=== PATIENT | male | born 1975 | race Asian ===

== ENCOUNTER 2017-12-29 15:52 | Inpatient (IN) | payer SELFPAY ==
[~2017-12-29] VITALS: Ht 185.4 cm; Wt 97.5 kg
[2017-12-29 16:00] VITALS: BP_SYST 136
[2017-12-29] MEDS ORDERED: IPRATROPIUM/ALBUTEROL SULFATE 3 ML AMPUL.NEB INH ONE ×2 (16:15→18:00)
[2017-12-29] MEDS ORDERED: DILTIAZEM HCL 25 MG/5 ML VIAL IVP ONE (16:15)
[2017-12-29 16:32] LABS: HEMATOCRIT 48.3 % (36-54); HEMOGLOBIN 15.5 g/dL (14.0-18.0); MEAN CORPUSCULAR HEMOGLOBIN 28 pg (27-31); MEAN CORPUSCULAR HGB CONC 32 % (32-36); MEAN CORPUSCULAR VOLUME 87 fL (79.0-98.0); PLATELET COUNT (AUTO) 209 K/uL (130-430); RED BLOOD CELL COUNT(AUTO) 5.57 MIL/uL (4.2-6.2); RED CELL DISTRIBUTION WIDTH 11.6 % (9.0-15.0); WHITE BLOOD COUNT (AUTO) 10.3 K/uL (4.8-10.8)
[2017-12-29 16:39] LABS: CREATININE 0.83 mg/dL (0.55-1.30); POTASSIUM 3.8 mmol/L (3.5-5.1)
[2017-12-29 16:45] LABS: ALBUMIN 3.8 g/dL (3.4-4.8); TOTAL BILIRUBIN 0.3 mg/dL (0.0-1.0)
[2017-12-29 17:06] LABS: BAND % (MANUAL) 4 % (0-6); BASOPHILS % (MANUAL) 0 % (0-2); EOSINOPHILS % (MANUAL) 18 % (0-7); LYMPHOCYTES % (MANUAL) 12 % (20-46); MONOCYTES % (MANUAL) 11 % (0-11)
[2017-12-29] MEDS ORDERED: NACL 0.9% 1,000 ML IV ONE (17:30)
[2017-12-29] MEDS ORDERED: methylPREDNISolone SOD SUCC/PF 62.5 MG/ML VIAL IVP ONE (18:00)
[2017-12-29] MEDS ORDERED: LevALBUTEROL HCL 1.25 MG/0.5 ML *CONC.* VIAL.NEB (XOPENEX CONC.) INH PRN (19:15)
[2017-12-29] MEDS ORDERED: ACETAMINOPHEN 325 MG TABLET PO PRN (19:30)
[2017-12-29] MEDS ORDERED: TEMAZEPAM 15 MG CAPSULE PO PRN (19:30)
[2017-12-29] MEDS: cefTRIAXone 1 GM in D5W 50 ML IV SCH (19:30)
[2017-12-29] MEDS ORDERED: MONTELUKAST 10 MG TABLET PO ONE (19:30)
[2017-12-29 19:40] LABS: BILIRUBIN,URINE NEGATIVE (NEGATIVE); BLOOD, URINE 1+ (NEGATIVE); CLARITY/URINE CLEAR (CLEAR); COLOR,URINE YELLOW (YELLOW); GLUCOSE,URINE NEGATIVE (NEGATIVE); KETONES,URINE TRACE (NEGATIVE); LEUKOCYTE ESTERASE ,URINE NEGATIVE (NEGATIVE); NITRITE, URINE NEGATIVE (NEGATIVE); PROTEIN URINE NEGATIVE (NEGATIVE); UROBILINOGEN,URINE 0.2 (0.2-1.0)
[2017-12-29 20:15] LABS: BACTERIA,URINE FEW /HPF (None Seen); WBC,URINE 0-3 /HPF (0-3)
[2017-12-29] MEDS ORDERED: cefTRIAXone 1 GM IVPB PREMIX 50 ML IV ONE (20:29)
[2017-12-29 20:52] VITALS: BP_SYST 136
[2017-12-29 21:00] VITALS: BP_SYST 138
[2017-12-29] MEDS ORDERED: PREDNISONE 20 MG TABLET PO SCH (21:00)
[2017-12-29] MEDS: PANTOPRAZOLE SODIUM 40 MG TAB PO SCH (21:26)
[2017-12-29] MEDS: DIPHENHYDRAMINE HCL 25 MG CAPSULE PO SCH (21:26)
[2017-12-29] MEDS: AZITHROMYCIN 250 MG TABLET PO SCH (21:27)
[2017-12-29] MEDS ORDERED: MAGNESIUM SULFATE 50 ML IV SCH (21:45)
[2017-12-29] MEDS: methylPREDNISolone SOD SUCC/PF 62.5 MG/ML VIAL IVP SCH (22:10)
[2017-12-30] MEDS: LevALBUTEROL HCL 1.25 MG/0.5 ML *CONC.* VIAL.NEB (XOPENEX CONC.) INH SCH ×4 (00:51→21:37)
[2017-12-30 01:08] VITALS: BP_SYST 131
[2017-12-30] MEDS: methylPREDNISolone SOD SUCC/PF 62.5 MG/ML VIAL IVP SCH ×3 (06:13→21:11)
[2017-12-30 07:59] VITALS: BP_SYST 118
[2017-12-30] MEDS: PANTOPRAZOLE SODIUM 40 MG TAB PO SCH ×2 (08:56→21:11)
[2017-12-30] MEDS: LORATADINE 10 MG TABLET PO SCH (08:56)
[2017-12-30] MEDS: DIPHENHYDRAMINE HCL 25 MG CAPSULE PO SCH ×2 (08:56→14:20)
[2017-12-30 10:39] LABS: BARBITURATE, URINE NEGATIVE (NEG <=200); METHAMPHETAMINES SCREEN,URINE NEGATIVE (NEG <=500); URINE AMPHETAMINE NEGATIVE (NEG <=500)
[2017-12-30 10:40] LABS: BENZODIAZEPINE, URINE NEGATIVE (NEG <=150); CANNABINOID, URINE NEGATIVE (NEG <=50); COCAINE, URINE NEGATIVE (NEG <=150); OPIATE, URINE POSITIVE (NEG <=100); PHENCYCLIDINE SCREEN,URINE NEGATIVE (NEG <=25); UR TRICYCLIC ANTIDEPRESSANTS NEGATIVE (NEG <=300); URINE METHADONE NEGATIVE (NEG <=200); URINE OXYCODONE SCREEN NEGATIVE (NEG <=100); URINE PROPOXYPHENE SCREEN NEGATIVE (NEG <=300)
[2017-12-30 13:17] VITALS: BP_SYST 123
[2017-12-30 16:26] VITALS: BP_SYST 134
[2017-12-30] MEDS: AZITHROMYCIN 250 MG TABLET PO SCH (18:34)
[2017-12-30] MEDS: MONTELUKAST 10 MG TABLET PO SCH (18:34)
[2017-12-30] MEDS: cefTRIAXone 1 GM in D5W 50 ML IV SCH (18:35)
[2017-12-30 20:56] VITALS: BP_SYST 137
[2017-12-30] MEDS: IPRATROPIUM BROM 0.5 MG/2.5 ML VIAL.NEB (ATROVENT) INH SCH (21:37)
[2017-12-31] VITALS: BP_SYST 126
[2017-12-31] MEDS: LevALBUTEROL HCL 1.25 MG/0.5 ML *CONC.* VIAL.NEB (XOPENEX CONC.) INH SCH ×4 (01:14→19:58)
[2017-12-31] MEDS: IPRATROPIUM BROM 0.5 MG/2.5 ML VIAL.NEB (ATROVENT) INH SCH ×4 (01:15→19:58)
[2017-12-31] MEDS: methylPREDNISolone SOD SUCC/PF 62.5 MG/ML VIAL IVP SCH (05:58)
[2017-12-31 07:50] VITALS: BP_SYST 107
[2017-12-31] MEDS: LORATADINE 10 MG TABLET PO SCH (08:18)
[2017-12-31] MEDS: PANTOPRAZOLE SODIUM 40 MG TAB PO SCH ×2 (08:18→21:58)
[2017-12-31 12:53] VITALS: BP_SYST 110
[2017-12-31 16:23] VITALS: BP_SYST 112
[2017-12-31] MEDS: MONTELUKAST 10 MG TABLET PO SCH (17:51)
[2017-12-31] MEDS: cefTRIAXone 1 GM in D5W 50 ML IV SCH (18:34)
[2017-12-31] MEDS: AZITHROMYCIN 250 MG TABLET PO SCH (18:34)
[2017-12-31 18:41] LABS: FREE T4 (FREE THYROXINE) 0.6 ng/dL (0.6-1.6); THYROID STIMULATING HORMONE 0.44 uIu/mL (0.34-4.82)
[2017-12-31] MEDS ORDERED: DILTIAZEM HCL 120 MG CAP.SR.24H PO ONE (18:45)
[2017-12-31 21:30] VITALS: BP_SYST 115
[2017-12-31] MEDS: PREDNISONE 20 MG TABLET PO SCH (21:59)
[2018-01-01 01:08] VITALS: BP_SYST 118
[2018-01-01] MEDS: IPRATROPIUM BROM 0.5 MG/2.5 ML VIAL.NEB (ATROVENT) INH SCH ×3 (01:12→13:32)
[2018-01-01] MEDS: LevALBUTEROL HCL 1.25 MG/0.5 ML *CONC.* VIAL.NEB (XOPENEX CONC.) INH SCH ×3 (01:12→13:32)
[2018-01-01 07:30] VITALS: BP_SYST 105
[2018-01-01] MEDS: PREDNISONE 20 MG TABLET PO SCH (08:41)
[2018-01-01] MEDS: LORATADINE 10 MG TABLET PO SCH (08:41)
[2018-01-01] MEDS: PANTOPRAZOLE SODIUM 40 MG TAB PO SCH (08:42)
[2018-01-01] MEDS ORDERED: DILTIAZEM HCL 120 MG CAP.SR.24H PO SCH (09:00)
[2018-01-01 10:42] VITALS: BP_SYST 105
[2018-01-01 12:31] VITALS: BP_SYST 112
[2018-01-01] MEDS ORDERED: XOPMDI INH (13:57)
[2018-01-01] MEDS ORDERED: METH4TAB3 PO ×2 (14:08→14:15)
[2018-01-01] MEDS ORDERED: MONT10TA25 PO ×2 (14:09→14:16)
[2018-01-01] MEDS ORDERED: DILT120C89 PO ×2 (14:10→14:16)
[2018-01-01] MEDS ORDERED: DOXY100T2 PO ×2 (14:10→14:17)
[2018-01-01] MEDS ORDERED: LEVA15HF5 INH (14:14)
[2018-01-01 14:39] VITALS: BP_SYST 112
== END 2018-01-01 15:05 | disposition home or self-care (01) | DRG 191 ==
LOC: SED 15:52 → STU 17:54
PROVIDERS: ADMIT Internal Medicine; ATTEND Internal Medicine
DX: J44.0 Chronic obstructive pulmonary disease with (acute) lower respiratory infection (principal); J45.901 Unspecified asthma with (acute) exacerbation; F17.210 Nicotine dependence, cigarettes, uncomplicated; J20.9 Acute bronchitis, unspecified; R09.02 Hypoxemia; J44.1 Chronic obstructive pulmonary disease with (acute) exacerbation; Z71.6 Tobacco abuse counseling
CPT/HCPCS: 36415; 36600; 71045; 80053; 80307; 81000-TC; 82785; 82803-TC; 83605; 83880; 84439; 84443-TC; 84484; 85007; 85027; 85379; 87040-TC; 93005; 93306; 94640; 94760; 96365; 96375; 99285; J0696; J1956; J2930; J3490; J7030; J7040; J7060; J7512; Q0144; Q0163